=== PATIENT | male | born 1985 | race Caucasian/White ===

== ENCOUNTER 2017-10-14 10:50 | Inpatient (IN) | payer MEDICAID ==
[~2017-10-14 10:50] MED LIST: NO HOME MEDS
[2017-10-14] MEDS ORDERED: morphine 2 MG/ML inj. syringe IV PRN (11:05)
[2017-10-14] MEDS ORDERED: ondansetron/PF 4mg/2ml inj IV ONE (11:05)
[2017-10-14 11:14] LABS: BASOPHILS % (AUTO) 0.4 % (0-1); EOSINOPHILS # (AUTO) 0.4 X10'3 (0-0.9); EOSINOPHILS % (AUTO) 3.7 % (0-6); HEMATOCRIT 32.7 % (42.0-52.0); HEMOGLOBIN 11.2 g/dl (14.0-17.9); LYMPHOCYTES # (AUTO) 3.1 X10'3 (1.1-4.8); LYMPHOCYTES % (AUTO) 25.7 % (21-51); MEAN CORPUSCULAR HEMOGLOBIN 30.1 PG (27.0-31.0); MEAN CORPUSCULAR HGB CONC 34.2 % (33.0-36.5); MEAN CORPUSCULAR VOLUME 87.8 FL (78-98); MEAN PLATELET VOLUME 6.6 FL (7.4-10.4); MONOCYTES # (AUTO) 0.9 X10'3 (0-0.9); MONOCYTES % (AUTO) 7.9 % (2-12); NEUTROPHILS # (AUTO) 7.4 X10'3 (1.8-7.7); NEUTROPHILS % (AUTO) 62.3 % (42-75); PLATELET COUNT 316 X10'3 (140-440); RED BLOOD COUNT 3.73 X10'6 (4.70-6.10); WHITE BLOOD COUNT 11.9 X10'3 (4.5-11.0)
[2017-10-14] MEDS ORDERED: morphine 4 MG/ML inj SYRINge IV ONE ×2 (11:15→14:05)
[2017-10-14 11:25] LABS: PARTIAL THROMBOPLASTIN TIME 27 SECONDS (22-32); PROTHROMBIN TIME 10.7 SECONDS (9.0-12.0)
[2017-10-14 11:37] LABS: LIPASE 64 U/L (73-393); TROPONIN I < 0.04 NG/ML (0.0-0.05)
[2017-10-14] MEDS ORDERED: iohexol 350 MG/ML 50ML vial IV ONE (11:37)
[2017-10-14] MEDS ORDERED: iohexol 350MG/ML 100ml bottle IV ONE (11:39)
[2017-10-14 11:40] LABS: TOTAL CELLS COUNTED 100
[2017-10-14 11:41] LABS: ETHANOL < 0.010 GM/DL (0.0-0.010)
[2017-10-14 11:42] LABS: PLATELET ESTIMATE NORMAL
[2017-10-14 14:12] LABS: CLARITY,URINE CLEAR (Clear); COLOR,URINE YELLOW (Yellow); GLUCOSE, URINE NEGATIVE (Neg); KETONES,URINE NEGATIVE (Neg); LEUKOCYTE ESTERASE ,URINE NEGATIVE (Neg); NITRITES, URINE NEGATIVE (Neg); OCCULT BLOOD,URINE NEGATIVE (Neg); PROTEIN,URINE NEGATIVE (Neg); UA COLLECTION TYPE VOIDED; UROBILINOGEN,URINE 0.2 E.U/dL (0.2-1.0)
[2017-10-14 14:26] LABS: URINE AMPHETAMINE SCREEN POSITIVE (Neg); URINE BARBITUATE SCREEN NEGATIVE (Neg); URINE BENZODIAZEPINES SCREEN NEGATIVE (Neg); URINE CANNABINOID SCREEN POSITIVE (Neg); URINE COCAINE SCREEN NEGATIVE (Neg); URINE METHADONE SCREEN NEGATIVE (Neg); URINE OPIATE SCREEN POSITIVE (Neg); URINE PHENCYCLIDINE SCREEN NEGATIVE (Neg)
[2017-10-14] MEDS ORDERED: naloxone 0.4 mg/ml inj IV PRN (14:35)
[2017-10-14] MEDS ORDERED: CADD PCA waste documentation MC PRN (14:35)
[2017-10-14] MEDS: normal saline 1000ml 1,000 ML IV SCH ×2 (14:57→23:32)
[2017-10-14 16:57] VITALS: BP 105/69
[2017-10-14] MEDS: HYDROmorphone/NS 1 mg/ml CADD 50 ML IV SCH ×5 (17:00→23:00)
[2017-10-14 18:42] VITALS: BP 105/69
[2017-10-14] MEDS ORDERED: FLU VACC QS2017-18 36MOS UP/PF 60 MCG/0.5 ML SYRINGE IMVAC ONE (20:05)
[2017-10-14 22:00] VITALS: BP 109/70
[2017-10-15] MEDS: HYDROmorphone/NS 1 mg/ml CADD 50 ML IV SCH ×12 (01:00→22:43)
[2017-10-15 02:00] VITALS: BP 115/69
[2017-10-15 05:00] VITALS: BP 114/73
[2017-10-15 05:13] LABS: BASOPHILS % (AUTO) 0.4 % (0-1); EOSINOPHILS # (AUTO) 0.4 X10'3 (0-0.9); EOSINOPHILS % (AUTO) 3.2 % (0-6); HEMATOCRIT 32.5 % (42.0-52.0); HEMOGLOBIN 11.1 g/dl (14.0-17.9); LYMPHOCYTES # (AUTO) 2.8 X10'3 (1.1-4.8); LYMPHOCYTES % (AUTO) 23.2 % (21-51); MEAN CORPUSCULAR HEMOGLOBIN 29.8 PG (27.0-31.0); MEAN CORPUSCULAR HGB CONC 34.1 % (33.0-36.5); MEAN CORPUSCULAR VOLUME 87.3 FL (78-98); MEAN PLATELET VOLUME 7.3 FL (7.4-10.4); MONOCYTES # (AUTO) 0.9 X10'3 (0-0.9); MONOCYTES % (AUTO) 7.3 % (2-12); NEUTROPHILS # (AUTO) 7.8 X10'3 (1.8-7.7); NEUTROPHILS % (AUTO) 65.9 % (42-75); PLATELET COUNT 283 X10'3 (140-440); RED BLOOD COUNT 3.72 X10'6 (4.70-6.10); RED CELL DISTRIBUTION WIDTH 13.4 % (11.5-14.5); WHITE BLOOD COUNT 11.8 X10'3 (4.5-11.0)
[2017-10-15] MEDS: normal saline 1000ml 1,000 ML IV SCH ×2 (05:25→12:14)
[2017-10-15 10:00] VITALS: BP 112/73
[2017-10-15 18:00] VITALS: BP 114/74
[2017-10-15 22:00] VITALS: BP 123/81
[2017-10-16] MEDS: HYDROmorphone/NS 1 mg/ml CADD 50 ML IV SCH ×6 (01:00→11:00)
[2017-10-16 06:00] VITALS: BP 126/84
[2017-10-16 11:00] VITALS: BP 122/79
== END 2017-10-16 11:18 | disposition home or self-care (01) | DRG 144 ==
LOC: ER 10:51 → ED HOLD 14:33 → EDBEDREQ 15:27 → ORTHO 4S 16:34
PROVIDERS: ADMIT Surgery; ATTEND Surgery
PROC: BW251ZZ Computerized Tomography (CT Scan) of Chest, Abdomen and Pelvis using Low Osmolar Contrast (ICD-10-PCS; principal; 2017-10-14)
DX: S22.31XA Fracture of one rib, right side, initial encounter for closed fracture (principal); S36.112A Contusion of liver, initial encounter; S30.1XXA Contusion of abdominal wall, initial encounter; F12.90 Cannabis use, unspecified, uncomplicated; F11.90 Opioid use, unspecified, uncomplicated; Z88.1 Allergy status to other antibiotic agents; V19.9XXA Pedal cyclist (driver) (passenger) injured in unspecified traffic accident, initial encounter; Z79.899 Other long term (current) drug therapy; Y93.55 Activity, bike riding; Z87.891 Personal history of nicotine dependence; Z56.0 Unemployment, unspecified
CPT/HCPCS: 36415; 71260; 74177; 80305; 80320; 81003; 82553; 82948; 83690; 84484; 85007; 85025; 85610; 85730; 86885; 86900; 86901; 87070; 93005; 96374; 96375; 99285; J1170; J2270; J2405; J7030; Q9967

== ENCOUNTER 2023-02-23 08:26 | Outpatient (CLI) | payer MEDICAID | END 2023-02-23 23:59 | disposition home or self-care (01) | LOC: RAD 08:26 | PROVIDERS: ATTEND General Practice | DX: R94.31 Abnormal electrocardiogram [ECG] [EKG] (principal); F11.20 Opioid dependence, uncomplicated | CPT/HCPCS: 93005 ==

== ENCOUNTER 2023-10-21 20:05 | Emergency (ER) | payer MEDICAID ==
[~2023-10-21] VITALS: Ht 175.3 cm; Wt 75.0 kg
[2023-10-21] MEDS ORDERED: SULF1TAB49 PO (22:58)
[2023-10-21] MEDS ORDERED: CEPH-585 PO (22:58)
[2023-10-21] MEDS: CefTRIAXone 1000mg IM Kit (w/lidocaine diluent) IM ONE (23:18)
[2023-10-21 23:20] VITALS: BP 144/78; PULSE 90; RESP 18; TEMP 98; O2SAT 99
== END 2023-10-21 23:22 | disposition home or self-care (01) ==
LOC: ER 20:06
DX: L03.115 Cellulitis of right lower limb (principal); F12.90 Cannabis use, unspecified, uncomplicated; Z88.1 Allergy status to other antibiotic agents
CPT/HCPCS: 96372; 99283; J0696